=== PATIENT | female | born 1935 | race Caucasian/White ===

== ENCOUNTER 2016-12-05 07:07 | Day surgery (SDC) | payer OTHER ==
[2016-12-05] MEDS ORDERED: LIDOCAINE HCL 2% (20ML MULTI-DOSE VIAL) NR ONE (08:04)
[2016-12-05] MEDS ORDERED: ePHEDrine SULFATE 50 MG/1 ML AMPULE ONE (08:04)
[2016-12-05] MEDS ORDERED: PROPOFOL 20 ML ONE ×4 (08:04)
[2016-12-05] MEDS ORDERED: SUCCINYLCHOLINE CHLORIDE 200 MG/10 ML VIAL ONE (08:04)
[2016-12-05] MEDS ORDERED: PHENYLEPHRINE HCL 10 MG/1 ML SINGLE DOSE VIAL ONE (08:04)
[2016-12-05] MEDS ORDERED: GLYCOPYRROLATE 0.2 MG/1 ML VIAL ONE ×2 (08:26)
[2016-12-05 08:44] VITALS: TEMP 97.6
[2016-12-05 09:38] VITALS: BP 118/46; PULSE 62
--- NOTE | 2016-12-06 14:01 | PATH ---
Surgical Pathology Report Patient Name: MARIALUISA ESPAÑA [facility]. Rec. #: [id number] /Age/Gender: 1935 (Age: 81) / F Account: [id number] Location: [facility]-ENDOSCOPY Taken: 12/05/2016 Received: 12/05/2016 Reported: 12/06/2016 Physicians: Janene Rayo M.D. Specimen(s) Received A: BX RECTAL POLYPS B: BX SIGMOID POLYP Clinical History History of colon polyp Polyps, diverticulosis Final Diagnosis A. RECTUM, POLYP, BIOPSY: HYPERPLASTIC POLYPS. B. COLON, SIGMOID, POLYP, BIOPSY: FRAGMENTS OF HYPERPLASTIC POLYP. Electronically Signed Fredrick Mccarthy M.D. Gross Description A. Received in formalin, labeled "biopsy rectal polyps" are 4 delcid, irregular portions of soft tissue ranging from 0.2-0.4 cm in greatest dimension. The specimens are submitted in toto in one cassette. B. Received in formalin, labeled "biopsy sigmoid polyp" are 2 delcid, irregular portions of soft tissue averaging 0.3 cm in greatest dimension. The specimens are submitted in toto in one cassette. DL/12/05/2016 saudi/12/05/2016
== END 2016-12-05 09:45 | disposition home or self-care (01) ==
LOC: JASU-ENDO 07:07
PROVIDERS: ATTEND Internal Medicine Gastroenterology
PROC: 0DBN8ZX Excision of Sigmoid Colon, Via Natural or Artificial Opening Endoscopic, Diagnostic (ICD-10-PCS; 2016-12-05)
PROC: 0DBP8ZX Excision of Rectum, Via Natural or Artificial Opening Endoscopic, Diagnostic (ICD-10-PCS; principal; 2016-12-05 08:00)
DX: Z12.11 Encounter for screening for malignant neoplasm of colon (principal); Z86.010 Personal history of colon polyps; K62.1 Rectal polyp; D12.5 Benign neoplasm of sigmoid colon; K57.30 Diverticulosis of large intestine without perforation or abscess without bleeding
CPT/HCPCS: 88305-TC

== ENCOUNTER 2023-03-06 05:11 | Day surgery (SDC) | payer OTHER ==
[2023-03-04 09:13] VITALS: BMI 19.2
[2023-03-06 09:21] VITALS: TEMP 97.8
[2023-03-06 09:33] VITALS: RESP 18
[2023-03-06 09:53] VITALS: BP 148/59; PULSE 71
== END 2023-03-06 10:10 | disposition home or self-care (01) ==
LOC: JASU-ENDO 05:11
PROVIDERS: ATTEND Internal Medicine Gastroenterology
PROC: 0DBP8ZX Excision of Rectum, Via Natural or Artificial Opening Endoscopic, Diagnostic (ICD-10-PCS; principal; 2023-03-06 09:00)
DX: Z12.11 Encounter for screening for malignant neoplasm of colon (principal); K62.1 Rectal polyp; K64.8 Other hemorrhoids; K57.30 Diverticulosis of large intestine without perforation or abscess without bleeding; Z86.010 Personal history of colon polyps